=== PATIENT | male | born 1980 | race African-American/Black ===

== ENCOUNTER 2017-11-08 02:36 | Emergency (ER) | payer MEDICAID, OTHER ==
[~2017-11-08] VITALS: Ht 188 cm; Wt 102.0 kg
[2017-11-08] MEDS ORDERED: KETOROLAC 60MG/2ML VIAL IM ONE (07:00)
[2017-11-08 07:23] VITALS: BP 113/62
== END 2017-11-08 10:04 | disposition home or self-care (01) ==
LOC: ER 02:36
DX: M25.562 Pain in left knee (principal); W01.0XXA Fall on same level from slipping, tripping and stumbling without subsequent striking against object, initial encounter; Y93.89 Activity, other specified; Y92.89 Other specified places as the place of occurrence of the external cause; Y99.8 Other external cause status
CPT/HCPCS: 73560; 96372; 99284; J1885; L1830; Z7610